=== PATIENT | female | born 1980 | race African-American/Black ===

== ENCOUNTER 2024-04-01 11:07 | Emergency (ER) | payer OTHER ==
[~2024-04-01] VITALS: Ht 175.3 cm; Wt 72.0 kg
[2024-04-01 11:15] VITALS: TEMP 36.7; O2SAT 98
[2024-04-01 11:51] LABS: BASOPHILS % 0.5 % (0.0-2.0); EOSINOPHILS % 0.8 % (0.0-5.0); HEMATOCRIT. 43.7 % (36.0-48.0); HEMOGLOBIN. 14.1 g/dL (12.0-16.0); LYMPHOCYTES % 29.5 % (20.0-50.0); MEAN CORPUSCULAR HEMOGLOBIN 29.7 pg (28.0-32.0); MEAN CORPUSCULAR HGB CONC 32.3 g/dL (31.0-37.0); MEAN PLATELET VOLUME 8.5 fl (7.4-10.4); MONOCYTES % 5.9 % (2.0-8.0); NEUTROPHILS % 63.3 % (40.0-76.0); PLATELET 278 x1000/uL (130-400); RED BLOOD CELL COUNT 4.75 mill/uL (4.2-5.4); RED CELL DISTRIBUTION WIDTH 13.1 % (11.6-14.6); WHITE BLOOD COUNT 9.6 x1000/uL (4.5-11.0)
[2024-04-01 11:53] LABS: CHLORIDE 108 mEq/L (98-107); POTASSIUM 3.5 mEq/L (3.5-5.1); SODIUM 142 mEq/L (136-145)
[2024-04-01 11:54] LABS: CALCIUM 9.1 mg/dL (8.7-10.4); CARBON DIOXIDE 23 mEq/L (21-32)
[2024-04-01 11:59] LABS: CREATININE 1.1 mg/dL (0.6-1.0); GLUCOSE 148 mg/dL (70-105); UREA NITROGEN BLOOD 12 mg/dL (9-23)
[2024-04-01 12:01] LABS: ALANINE AMINOTRANSFERASE 14 IU/L (10-49); ALBUMIN 4.1 g/dL (3.2-4.8); ASPARTATE AMINOTRANSFERASE 16 IU/L (<34); BILIRUBIN DIRECT 0.2 mg/dL (<=3.0)
[2024-04-01 12:02] LABS: BILIRUBIN TOTAL 0.6 mg/dL (0.1-1.0); PROTEIN TOTAL 6.9 g/dL (6.0-8.3)
[2024-04-01 12:03] LABS: HCG SCREEN NEGATIVE
[2024-04-01] MEDS: FAMOTIDINE 20MG/2ML VIAL IV STA (12:29)
[2024-04-01] MEDS: KETOROLAC 15MG/ML VIAL IV ONE (12:29)
[2024-04-01 12:37] LABS: PROTHROMBIN TIME 10.9 sec (9.6-11.0)
[2024-04-01] MEDS ORDERED: ONDA4TAB50 PO (13:16)
[2024-04-01] MEDS ORDERED: IBUP-2030 PO (13:16)
[2024-04-01] MEDS ORDERED: TAMS-11 PO (13:16)
[2024-04-01 13:41] VITALS: BP 136/85; PULSE 83; RESP 18; O2SAT 100
[2024-04-01] MEDS ORDERED: HYDR-4001 MT (14:01)
== END 2024-04-01 14:10 | disposition home or self-care (01) ==
LOC: ER 11:44 → CANBEDREQ 13:17 → ER 14:10
DX: N20.0 Calculus of kidney (principal); Z79.1 Long term (current) use of non-steroidal anti-inflammatories (NSAID); Z88.5 Allergy status to narcotic agent; Z79.899 Other long term (current) drug therapy
CPT/HCPCS: 80076; 80048; 84703; 83690; 85025; 85610; 36415; 74176; 96374; 96375; 99285; J3490; J1885; Z7610; A4606